=== PATIENT | female | born 1935 | race Caucasian/White ===

== ENCOUNTER 2020-08-08 08:53 | Inpatient (IN) ==
--- OUTSIDE RECORDS SUMMARY | 2020-08-08 08:56 | External Medical Summary | Continuity of Care Document ---
:1935 Author Name Elli Skelton, Provider Address Unavailable Unavailable , Care Team Providers Name Role Phone Zaheer Gregory M.D. 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) Rhabdomyolysis (728.88) (M62.82) Allergies and Adverse Reactions No Known Drug Allergies (Allergy) Medications No Reported Medications Refills: 0 Procedures History of hysterectomy Status: Complete d History of bladder surgery Status: Compl eted History of rotator cuff repair Status: C ompleted History of hernia repair Status: Complet ed Immunizations Immunizations not documented Family History Father Family history of cardiac disorder (V17.49) (Z82.49) Status: Active Social History - Smoking Status Never smoked tobacco Interventions InstructionsEat a low fat and low cholesterol diet.; Done: 17 Jan 2017 Discussion/SummaryThe patient is stable from a cardiovascular standpoint. Fortunately, her recent echocardiogram showed resolution of her mild left ventricular dysfunction. This was likely occurred because of her significant episode of rhabdomyolysis. Furthermore, there has been complete resolution of her previously diagnosed pericardial effusion.Duration of the visit was greater than 25 minutes. More than 50 percent of the time was spent in counseling and education. Plan of Treatment Planned Observations Planned Goals not documented Results No Known Results Results not documented Encounters Appointment; Zaheer Gregory M.D. 17-Jan-2017 13:45 Encounter Diagnosis: Problem not documented
[2020-08-08] MEDS ORDERED: ONDANSETRON INJ 2 MG/ML 2 ML VIAL IV STA (09:02)
[2020-08-08] MEDS ORDERED: SODIUM CHLORIDE 0.9% 1000ML 1,000 ML IV SCH (09:15)
--- NOTE | 2020-08-08 09:42 | Electrocardiogram Report ---
Test Reason : Blood Pressure : / mmHG Vent. Rate : 090 BPM Atrial Rate : 090 BPM P-R Int : 122 ms QRS Dur : 074 ms QT Int : 370 ms P-R-T Axes : 005 -03 259 degrees QTc Int : 452 ms Normal sinus rhythm Cannot rule out Old Inferior infarct Poor R wave progression, consider anterior WI vs. lead placement vs. LVH Abnormal ECG No previous ECGs available Confirmed by Kory Ratliff ([id number]) on 08/08/2020 9:41:42 AM Referred By: Confirmed By:Kory Ratliff
--- NOTE | 2020-08-08 09:49 | XRay Report ---
XR chest 1V portable CLINICAL HISTORY: weakness COMPARISON STUDY: No previous studies for comparison. FINDINGS: The heart is the upper limits of normal in size with left ventricular prominence. There is no failure. There is no lobar consolidation. There is mild basilar atelectasis. There is gaseous dist ention of the stomach and visualized portions of the colon.[ IMPRESSION: 1. Mild basilar atelectasis 2. Gaseous distention of the bowel ACT 112: Negative or not required by law. Electronically signed by: Benny Turner M.D. 08/08/2020 9:48 AM
[2020-08-08 09:55] LABS: Basophils # (auto) 0.01 K/uL (0-0.2); Basophils % (auto) 0.1 %; Eosinophils # (auto) 0.02 K/uL (0-0.5); Eosinophils % (auto) 0.2 %; Hematocrit (blood only) 35.7 % (37-47); Hemoglobin 10.7 g/dL (12.0-16.0); Immature Granulocytes # (auto) 0.03 K/uL (0.00-0.02); Immature Granulocytes % (auto) 0.2 %; Lymphocytes # (auto) 0.78 K/uL (1.2-3.4); Mean Corpuscular Hemoglobin 28.5 pg (25-34); Mean Corpuscular Volume 94.9 fL (80-100); Mean Platelet Volume 9.5 fL (7.4-10.4); Monocytes # (auto) 1.33 K/uL (0.11-0.59); Monocytes % (auto) 10.2 %; Neutrophils # (auto) 10.91 K/uL (1.4-6.5); Neutrophils % (auto) 83.3 %; Platelet Count 489 K/uL (130-400); RDW Coefficient of Variation 15.6 % (11.5-14.5); RDW Standard Deviation 53.7 fL (36.4-46.3); Red Blood Count 3.76 M/uL (4.2-5.4); White Blood Count 13.08 K/uL (4.8-10.8)
[2020-08-08 09:56] LABS: Appearance Urine Cloudy (Clear); Bacteria Urine Automated 2+ (Negative); Bilirubin Urine Negative (Negative); Blood Urine Negative (Negative); Color Urine Dark Yellow; Epithelial Cell Urine Auto 20-30 /lpf (0-5); Glucose Urine UA Negative (Negative); Ketones Urine Trace (Negative); Leukocyte Esterase Urine Negative (Negative); Nitrite Urine Negative (Negative); Protein Urine Trace (Negative); RBC Urine Automated 0-4 /hpf (0-4); Specific Gravity Urine 1.025 (1.000-1.030); Urobilinogen Urine Negative (Negative)
[2020-08-08] MEDS ORDERED: SODIUM CHLORIDE 0.9% 1000ML 1,000 ML IV ONE (09:59)
[2020-08-08 10:07] LABS: iSTAT Creatinine 2.1 mg/dl (0.6-1.3); iSTAT Hemoglobin 11.2 g/dl (12.0-16.0); iSTAT Ionized Calcium 1.05 mmol/l (1.12-1.32); iSTAT Potassium 4.1 mmol/L (3.3-5.0)
[2020-08-08 10:13] LABS: INR 1.3 (0.9-1.1)
[2020-08-08 10:32] LABS: Albumin Globulin Ratio 0.7 (0.9-2); Albumin Level 2.5 gm/dl (3.4-5.0); BUN Creatinine Ratio 21.9 (10-20); Bilirubin,Total 0.4 mg/dl (0.2-1); Calcium 7.7 mg/dl (8.5-10.1); Globulin 3.6 gm/dl (2.5-4.0); Magnesium 2.6 mg/dl (1.8-2.4); Potassium 4.1 mmol/L (3.5-5.1); Thyroid Stimulating Hormone 6.24 uIu/ml (0.300-4.500); Total Protein 6.1 gm/dl (6.4-8.2); Troponin I 0.022 ng/ml (0-0.045)
[2020-08-08 10:35] LABS: Influenza A virus by PCR Negative (Neg); Influenza B virus by PCR Negative (Neg); RSV by PCR Negative (Neg); SARS CoV2 RNA(COVID-19) InHosp NEGATIVE (Negative)
--- NOTE | 2020-08-08 10:42 | Emergency Department Note ---
Impression & Plan Colonic mass, SBO (small bowel obstruction), Hypotension, Acute worsening of stage 3 chronic kidney disease, Ischemia, bowel ED Provider Note Provider: Adan Booth MD DATE OF SERVICE: 08/08/2020 CHIEF COMPLAINT: Short of breath, abdominal pain, low blood pressure HISTORY OF PRESENT ILLNESS: Patient is a 84-year-old female with a past medical history including per medical record CKD, GERD, CVA, diaphragmatic hernia presented via ambulance today from [facility]. Report is this morning the patient's short of breath and appear cooled and possibly somewhat mottled. EMS noted hypotension blood pressures in the 80s for them and the patient seem to be in some respiratory distress. Patient upon arrival here is alert but does appear uncomfortable. She is somewhat cool to the touch and appears quite fatigued. States that she has had approximately 2 days of some abdominal discomfort and has not eaten much for the last 2 days. Patient denies significant chest pain or shortness of breath. She denies any falls. She denies a history of similar plane. Patient's daughter later arrives and states that she was unaware of her complaints for the last 2 days and the facility called her today and states that the patient seems somewhat short of breath. No fevers were reported by EMS. REVIEW OF SYSTEMS: A total of 10 review of systems was obtained and negative except as stated above in the HPI. PAST MEDICAL HISTORY: As noted above MEDICATIONS: Reviewed home medication list from the facility SOCIAL HISTORY: Currently resides at [facility], reportedly non-smoker PHYSICAL EXAM: GENERAL: alert and oriented but fatigued appearing on the stretcher Head: normocephalic and atraumatic EYES: No injection, discharge or icterus. NECK: Trachea midline. LUNGS: Airway patent. No retractions. Breath sounds clear HEART: Regular rate and rhythm. No chest wall tenderness but extremities are with decreased capillary refill and somewhat cool to the touch. ABDOMEN: Firm with diffuse tenderness and guarding. SKIN: Decreased capillary refill. No sacral decub appreciated. Somewhat cool distal extremities. EXTREMITIES: Without swelling, tenderness or deformity of the lower extremities NEUROLOGICAL: No focal deficits. No aphasia. No facial droop or slurred speech. EK bpm normal sinus rhythm no PVC noted. No acute ST segment elevation noted with a QTC of 452. Some artifact limits interpretation of V6. CONTINUOUS CARDIAC MONITORING: was ordered and showed a heart rate of 80s-90s bpm in normal sinus rhythm Patient's laboratory studies and imaging reviewed. Differential includes Infection, dehydration, metabolic abnormality, hypo/hyperglycemia, electrolyte disturbance, anemia, hypoxia, cardiac sources, intracerebral event, toxicologic, neurologic, gastrointestinal as well as other pathologies. IMPRESSION/MEDICAL DECISION MAKING: Patient presents reportedly somewhat tachypneic and hypotensive prior to arrival. Patient presents with a living well. In discussion with the patient with daughter at bedside she states she would not want CPR or intubation. She be okay with medical management as far as antibiotics and medications for blood pressure but would not want a surgery. Patient's oxygenating well but somewhat tachypneic holding her abdomen is maintained on 2 L nasal cannula. Patient given IV fluid bolus given episodes of hypotension here.. Abdomen is somewhat firm and tender and concerning. [id number] BMP shows elevated creatinine. Noncontrast scan of the abdomen pelvis was ordered given this finding. Chest x- ray appears clear with gaseous distention of the abdomen. Patient without focal neurological deficit lower suspicion for acute CVA. Patient is somewhat anemic at 10.7 with a white count of 13. Bicarb quite low at 8 and lactate elevated greater than 11. Troponin detectable not abnormal. Urine without signs of infection. Covid influenza testing was negative. Procalcitonin significantly elevated. 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 Radiology also notes extensive pneumatosis and with a lactate of 11 and severe pain significant concern for ischemic bowel. Concerning findings for metastasis also noted. Discussed with the the patient and her daughter at bedside. Discussed the significance of the finding. Patient again voices that she would not want any acute surgical intervention. She states that she just wants to be comfortable. Discussed with the patient and daughter that with concerns for ischemic colitis if no surgeries are performed the outcome is fatal. They understand this. Given this discussed transition to comfort measures and small amount of morphine given for pain. Patient was for some sips of water. Given the need for acute pain control with ischemic colitis and bowel obstruction discussed further care here at the hospital in a comfort manner. DIAGNOSIS: Cecal mass, small bowel obstruction, ischemic colitis DISPOSITION: Hospitalist will evaluate with the plan to transition to comfort care Past Med/Surg History Medical History (Updated 08/08/20 @ 13:11 by Adan Booth M.D.) Anemia CKD (chronic kidney disease) stage 3, GFR 30-59 ml/min Depression GERD (gastroesophageal reflux disease) History of CVA (cerebrovascular accident) HLD (hyperlipidemia) HTN (hypertension) Surgical History (Updated 08/08/20 @ 11:54 by Kay Isidro PA-C) History of hysterectomy History of shoulder surgery S/P repair of paraesophageal hernia Social History Smoking Status: Never smoker Preferred Language: Montserratian Feels Safe at Home: Yes Allergies Allergies Allergy/AdvReac Type Severity Reaction Status Date / Time No Known Allergies Allergy Verified 08/08/20 09:39 Home Meds Home Medications Medication Instructions Recorded Confirmed acetaminophen [Tylenol] 650 mg PO Q4H PRN MDD 4 GRAMS/24 02/11/20 08/08/20 HOURS amlodipine 5 mg PO QAM 02/11/20 08/08/20 ascorbic acid (vitamin C) [Vitamin 500 mg PO QAM 02/11/20 08/08/20 C] aspirin 325 mg PO QAM 02/11/20 08/08/20 atorvastatin [Lipitor] 40 mg PO HS 02/11/20 08/08/20 mirtazapine [Remeron] 30 mg PO HS 02/11/20 08/08/20 pantoprazole [Protonix] 40 mg PO QAM 02/11/20 08/08/20 bisacodyl [Dulcolax (bisacodyl)] 10 mg MA DAILY PRN 08/08/20 08/08/20 docusate sodium 100 mg PO DAILY 08/08/20 08/08/20 ferrous gluconate 324 mg PO BID 08/08/20 08/08/20 loperamide 2 mg PO QID PRN 08/08/20 08/08/20 magnesium hydroxide [Milk of 30 ml PO DAILY PRN 08/08/20 08/08/20 Magnesia] polyethylene glycol 3350 [Miralax] 17 g PO DAILY PRN 08/08/20 08/08/20 tramadol 50 mg PO Q6H PRN 08/08/20 08/08/20 zinc oxide 1 applic TOPICAL 6XD PRN 08/08/20 08/08/20 Results & Data (ED) Vital Signs Vital Signs - 24 hr 08/08/20 08:55 08/08/20 09:58 08/08/20 10:00 Temperature 36.6 C Temperature Source Rectal Pulse Rate 90 88 87 Pulse Rate from SpO2 Sensor 89 87 Pulse Rhythm Regular Pulse Strength Normal Respiratory Rate 28 H 33 H 28 H Respiratory Effort / Characteristics Spontaneous Accessory Muscle Use Retracting Short of Breath Respiratory Depth Retractive Respiratory Pattern Regular Blood Pressure 107/64 72/47 L 74/48 L Blood Pressure Mean 78 55 56 Blood Pressure Position Sitting Pulse Oximetry 100 100 100 Oxygen Delivery Method Nasal Cannula Oxygen Flow Rate 2 Sepsis Recent Fever Within 48 Hours No Sepsis New/Unexplained Change in Mental Status No Sepsis Action Taken by Nursing No Action Required 08/08/20 10:03 08/08/20 10:05 08/08/20 10:15 Temperature Temperature Source Pulse Rate 87 87 85 Pulse Rate from SpO2 Sensor 86 88 88 Pulse Rhythm Pulse Strength Respiratory Rate 33 H 31 H 31 H Respiratory Effort / Characteristics Respiratory Depth Respiratory Pattern Blood Pressure 78/54 L 80/45 L 82/50 L Blood Pressure Mean 62 56 60 Blood Pressure Position Pulse Oximetry 100 98 99 Oxygen Delivery Method Nasal Cannula Oxygen Flow Rate 2 Sepsis Recent Fever Within 48 Hours Sepsis New/Unexplained Change in Mental Status Sepsis Action Taken by Nursing 08/08/20 10:31 08/08/20 10:33 08/08/20 10:35 Temperature Temperature Source Pulse Rate 81 81 81 Pulse Rate from SpO2 Sensor 81 Pulse Rhythm Pulse Strength Respiratory Rate 15 26 H 26 H Respiratory Effort / Characteristics Respiratory Depth Respiratory Pattern Blood Pressure 96/52 L 96/51 L Blood Pressure Mean 66 66 Blood Pressure Position Pulse Oximetry 100 Oxygen Delivery Method Oxygen Flow Rate Sepsis Recent Fever Within 48 Hours Sepsis New/Unexplained Change in Mental Status Sepsis Action Taken by Nursing 08/08/20 10:40 08/08/20 10:45 08/08/20 10:50 Temperature Temperature Source Pulse Rate 81 81 82 Pulse Rate from SpO2 Sensor 81 81 82 Pulse Rhythm Pulse Strength Respiratory Rate 26 H 27 H 26 H Respiratory Effort / Characteristics Respiratory Depth Respiratory Pattern Blood Pressure 97/56 L 101/60 104/60 Blood Pressure Mean 69 73 74 Blood Pressure Position Pulse Oximetry 100 100 100 Oxygen Delivery Method Oxygen Flow Rate Sepsis Recent Fever Within 48 Hours Sepsis New/Unexplained Change in Mental Status Sepsis Action Taken by Nursing 08/08/20 10:55 08/08/20 11:01 04/05/21 11:06 Temperature Temperature Source Pulse Rate 82 83 83 Pulse Rate from SpO2 Sensor 82 85 83 Pulse Rhythm Pulse Strength Respiratory Rate 26 H 26 H 26 H Respiratory Effort / Characteristics Respiratory Depth Respiratory Pattern Blood Pressure 92/59 L 90/54 L 93/58 L Blood Pressure Mean 70 66 69 Blood Pressure Position Pulse Oximetry 100 100 100 Oxygen Delivery Method Oxygen Flow Rate Sepsis Recent Fever Within 48 Hours Sepsis New/Unexplained Change in Mental Status Sepsis Action Taken by Nursing 08/08/20 11:15 08/08/20 11:20 08/08/20 11:25 Temperature Temperature Source Pulse Rate 82 81 82 Pulse Rate from SpO2 Sensor 79 82 82 Pulse Rhythm Pulse Strength Respiratory Rate Respiratory Effort / Characteristics Respiratory Depth Respiratory Pattern Blood Pressure 82/51 L 89/55 L 86/58 L Blood Pressure Mean 61 66 67 Blood Pressure Position Pulse Oximetry 97 100 100 Oxygen Delivery Method Oxygen Flow Rate Sepsis Recent Fever Within 48 Hours Sepsis New/Unexplained Change in Mental Status Sepsis Action Taken by Nursing 08/08/20 11:30 08/08/20 11:35 08/08/20 11:40 Temperature Temperature Source Pulse Rate 81 81 83 Pulse Rate from SpO2 Sensor 81 83 Pulse Rhythm Pulse Strength Respiratory Rate Respiratory Effort / Characteristics Respiratory Depth Respiratory Pattern Blood Pressure 87/58 L 104/52 L Blood Pressure Mean 67 69 Blood Pressure Position Pulse Oximetry 100 91 100 Oxygen Delivery Method Oxygen Flow Rate Sepsis Recent Fever Within 48 Hours Sepsis New/Unexplained Change in Mental Status Sepsis Action Taken by Nursing 08/08/20 11:41 08/08/20 13:08 Temperature Temperature Source Pulse Rate 83 Pulse Rate from SpO2 Sensor Pulse Rhythm Pulse Strength Respiratory Rate Respiratory Effort / Characteristics Respiratory Depth Respiratory Pattern Blood Pressure 84/54 L Blood Pressure Mean 64 Blood Pressure Position Pulse Oximetry Oxygen Delivery Method Nasal Cannula Oxygen Flow Rate 2 Sepsis Recent Fever Within 48 Hours Sepsis New/Unexplained Change in Mental Status Sepsis Action Taken by Nursing Laboratory Data Result diagrams: 08/08/20 09:36 08/08/20 09:36 Lab Results 08/08/20 08/08/20 08/08/20 Range/Units 09:22 09:22 09:23 WBC (4.8-10.8) K/uL RBC (4.2-5.4) M/uL Hgb (12.0-16.0) g/dL POC Hgb (12.0-16.0) g/dl Hct (37-47) % POC Hct (37-47) % MCV (80-100) fL MCH (25-34) pg MCHC (32-36) g/dL RDW Std Deviation (36.4-46.3) fL RDW Coeff of Charisma (11.5-14.5) % Plt Count (130-400) K/uL MPV (7.4-10.4) fL Immature Gran % (Auto) % Neut % (Auto) % Lymph % (Auto) % [place] % (Auto) % Eos % (Auto) % Baso % (Auto) % Neut # (Auto) (1.4-6.5) K/uL Lymph # (Auto) (1.2-3.4) K/uL [place] # (Auto) (0.11-0.59) K/uL Eos # (Auto) (0-0.5) K/uL Baso # (Auto) (0-0.2) K/uL Immature Gran # (Auto) (0.00-0.02) K/uL PT (9.0-12.0) Seconds INR (0.9-1.1) POC Sodium (135-144) mmol/L Sodium (136-145) mmol/L POC Potassium (3.3-5.0) mmol/L Potassium (3.5-5.1) mmol/L POC Chloride (101-112) mmol/L Chloride (98-107) mmol/L Carbon Dioxide (21-32) mmol/L POC Total CO2 (24-31) mmol/L Anion Gap (3-11) POC Anion Gap (16-25) mmol/L POC BUN (7-18) mg/dl BUN (7-18) mg/dl Creatinine (0.6-1.2) mg/dl POC Creatinine (0.6-1.3) mg/dl Est Cr Clr Drug Dosing ml/min Est GFR ( Amer) Est GFR (Non-Af Amer) BUN/Creatinine Ratio (10-20) Glucose (70-99) mg/dl POC Glucose (other) (70-99) mg/dl Lactate (0.4-2.0) mmol/L Calcium (8.5-10.1) mg/dl POC Ioniz Calcium Randall (1.12-1.32) mmol/l Magnesium (1.8-2.4) mg/dl Total Bilirubin (0.2-1) mg/dl AST (15-37) U/L ALT (12-78) U/L Alkaline Phosphatase (45-117) U/L Troponin I (0-0.045) ng/ml Total Protein (6.4-8.2) gm/dl Albumin (3.4-5.0) gm/dl Globulin (2.5-4.0) gm/dl Albumin/Globulin Ratio (0.9-2) Lipase (73-393) U/L Procalcitonin (0-0.5) ng/ml TSH (0.300-4.500) uIu/ml Free T4 (0.8-1.6) ng/dl Urine Color Dark Yellow Urine Appearance Cloudy A (Clear) Urine pH 5.0 (4.5-7.5) Ur Specific [place] 1.025 (1.000-1.030) Urine Protein Trace H (Negative) Urine Glucose (UA) Negative (Negative) Urine Ketones Trace H (Negative) Urine Blood Negative (Negative) Urine Nitrite Negative (Negative) Urine Bilirubin Negative (Negative) Urine Urobilinogen Negative (Negative) Ur Leukocyte Esterase Negative (Negative) Urine WBC (Auto) 1-5 (0-5) /hpf Urine RBC (Auto) 0-4 (0-4) /hpf U Hyaline Cast (Auto) 5-10 H (0-5) /lpf U Epithel Cells (Auto) 20-30 H (0-5) /lpf Urine Bacteria (Auto) 2+ H (Negative) COVID-19 Eval Order CovFluRsv at [facility] SARS-CoV-2 (PCR) NEGATIVE (Negative) Influenza Type A (PCR) Negative (Neg) Influenza Type B (PCR) Negative (Neg) RSV (RT-PCR) Negative (Neg) 08/08/20 08/08/20 08/08/20 Range/Units 09:36 09:36 09:36 WBC 13.08 H (4.8-10.8) K/uL RBC 3.76 L (4.2-5.4) M/uL Hgb 10.7 L (12.0-16.0) g/dL POC Hgb (12.0-16.0) g/dl Hct 35.7 L (37-47) % POC Hct (37-47) % MCV 94.9 (80-100) fL MCH 28.5 (25-34) pg MCHC 30.0 L (32-36) g/dL RDW Std Deviation 53.7 H (36.4-46.3) fL RDW Coeff of Charisma 15.6 H (11.5-14.5) % Plt Count 489 H (130-400) K/uL MPV 9.5 (7.4-10.4) fL Immature Gran % (Auto) 0.2 % Neut % (Auto) 83.3 % Lymph % (Auto) 6.0 % [place] % (Auto) 10.2 % Eos % (Auto) 0.2 % Baso % (Auto) 0.1 % Neut # (Auto) 10.91 H (1.4-6.5) K/uL Lymph # (Auto) 0.78 L (1.2-3.4) K/uL [place] # (Auto) 1.33 H (0.11-0.59) K/uL Eos # (Auto) 0.02 (0-0.5) K/uL Baso # (Auto) 0.01 (0-0.2) K/uL Immature Gran # (Auto) 0.03 H (0.00-0.02) K/uL PT 13.0 H (9.0-12.0) Seconds INR 1.3 H (0.9-1.1) POC Sodium (135-144) mmol/L Sodium 142 (136-145) mmol/L POC Potassium (3.3-5.0) mmol/L Potassium 4.1 (3.5-5.1) mmol/L POC Chloride (101-112) mmol/L Chloride 112 H (98-107) mmol/L Carbon Dioxide 8 L* (21-32) mmol/L POC Total CO2 (24-31) mmol/L Anion Gap 22.0 H (3-11) POC Anion Gap (16-25) mmol/L POC BUN (7-18) mg/dl BUN 50 H (7-18) mg/dl Creatinine 2.28 H (0.6-1.2) mg/dl POC Creatinine (0.6-1.3) mg/dl Est Cr Clr Drug Dosing 13.0 ml/min Est GFR ( Amer) 22.0 Est GFR (Non-Af Amer) 19.0 BUN/Creatinine Ratio 21.9 H (10-20) Glucose 156 H (70-99) mg/dl POC Glucose (other) (70-99) mg/dl Lactate (0.4-2.0) mmol/L Calcium 7.7 L (8.5-10.1) mg/dl POC Ioniz Calcium Randall (1.12-1.32) mmol/l Magnesium 2.6 H (1.8-2.4) mg/dl Total Bilirubin 0.4 (0.2-1) mg/dl AST 53 H (15-37) U/L ALT 33 (12-78) U/L Alkaline Phosphatase 124 H (45-117) U/L Troponin I 0.022 (0-0.045) ng/ml Total Protein 6.1 L (6.4-8.2) gm/dl Albumin 2.5 L (3.4-5.0) gm/dl Globulin 3.6 (2.5-4.0) gm/dl Albumin/Globulin Ratio 0.7 L (0.9-2) Lipase (73-393) U/L Procalcitonin (0-0.5) ng/ml TSH 6.240 H (0.300-4.500) uIu/ml Free T4 1.24 (0.8-1.6) ng/dl Urine Color Urine Appearance (Clear) Urine pH (4.5-7.5) Ur Specific [place] (1.000-1.030) Urine Protein (Negative) Urine Glucose (UA) (Negative) Urine Ketones (Negative) Urine Blood (Negative) Urine Nitrite (Negative) Urine Bilirubin (Negative) Urine Urobilinogen (Negative) Ur Leukocyte Esterase (Negative) Urine WBC (Auto) (0-5) /hpf Urine RBC (Auto) (0-4) /hpf U Hyaline Cast (Auto) (0-5) /lpf U Epithel Cells (Auto) (0-5) /lpf Urine Bacteria (Auto) (Negative) COVID-19 Eval Order SARS-CoV-2 (PCR) (Negative) Influenza Type A (PCR) (Neg) Influenza Type B (PCR) (Neg) RSV (RT-PCR) (Neg) 04/05/21 04/05/21 04/05/21 Range/Units 09:36 09:36 09:36 WBC (4.8-10.8) K/uL RBC (4.2-5.4) M/uL Hgb (12.0-16.0) g/dL POC Hgb (12.0-16.0) g/dl Hct (37-47) % POC Hct (37-47) % MCV (80-100) fL MCH (25-34) pg MCHC (32-36) g/dL RDW Std Deviation (36.4-46.3) fL RDW Coeff of Charisma (11.5-14.5) % Plt Count (130-400) K/uL MPV (7.4-10.4) fL Immature Gran % (Auto) % Neut % (Auto) % Lymph % (Auto) % [place] % (Auto) % Eos % (Auto) % Baso % (Auto) % Neut # (Auto) (1.4-6.5) K/uL Lymph # (Auto) (1.2-3.4) K/uL [place] # (Auto) (0.11-0.59) K/uL Eos # (Auto) (0-0.5) K/uL Baso # (Auto) (0-0.2) K/uL Immature Gran # (Auto) (0.00-0.02) K/uL PT (9.0-12.0) Seconds INR (0.9-1.1) POC Sodium (135-144) mmol/L Sodium (136-145) mmol/L POC Potassium (3.3-5.0) mmol/L Potassium (3.5-5.1) mmol/L POC Chloride (101-112) mmol/L Chloride (98-107) mmol/L Carbon Dioxide (21-32) mmol/L POC Total CO2 (24-31) mmol/L Anion Gap (3-11) POC Anion Gap (16-25) mmol/L POC BUN (7-18) mg/dl BUN (7-18) mg/dl Creatinine (0.6-1.2) mg/dl POC Creatinine (0.6-1.3) mg/dl Est Cr Clr Drug Dosing ml/min Est GFR ( Amer) Est GFR (Non-Af Amer) BUN/Creatinine Ratio (10-20) Glucose (70-99) mg/dl POC Glucose (other) (70-99) mg/dl Lactate 11.7 H* (0.4-2.0) mmol/L Calcium (8.5-10.1) mg/dl POC Ioniz Calcium Randall (1.12-1.32) mmol/l Magnesium (1.8-2.4) mg/dl Total Bilirubin (0.2-1) mg/dl AST (15-37) U/L ALT (12-78) U/L Alkaline Phosphatase (45-117) U/L Troponin I (0-0.045) ng/ml Total Protein (6.4-8.2) gm/dl Albumin (3.4-5.0) gm/dl Globulin (2.5-4.0) gm/dl Albumin/Globulin Ratio (0.9-2) Lipase 78 (73-393) U/L Procalcitonin 45.43 H (0-0.5) ng/ml TSH (0.300-4.500) uIu/ml Free T4 (0.8-1.6) ng/dl Urine Color Urine Appearance (Clear) Urine pH (4.5-7.5) Ur Specific [place] (1.000-1.030) Urine Protein (Negative) Urine Glucose (UA) (Negative) Urine Ketones (Negative) Urine Blood (Negative) Urine Nitrite (Negative) Urine Bilirubin (Negative) Urine Urobilinogen (Negative) Ur Leukocyte Esterase (Negative) Urine WBC (Auto) (0-5) /hpf Urine RBC (Auto) (0-4) /hpf U Hyaline Cast (Auto) (0-5) /lpf U Epithel Cells (Auto) (0-5) /lpf Urine Bacteria (Auto) (Negative) COVID-19 Eval Order SARS-CoV-2 (PCR) (Negative) Influenza Type A (PCR) (Neg) Influenza Type B (PCR) (Neg) RSV (RT-PCR) (Neg) 08/08/20 Range/Units 09:45 WBC (4.8-10.8) K/uL RBC (4.2-5.4) M/uL Hgb (12.0-16.0) g/dL POC Hgb 11.2 L (12.0-16.0) g/dl Hct (37-47) % POC Hct 33 L (37-47) % MCV (80-100) fL MCH (25-34) pg MCHC (32-36) g/dL RDW Std Deviation (36.4-46.3) fL RDW Coeff of Charisma (11.5-14.5) % Plt Count (130-400) K/uL MPV (7.4-10.4) fL Immature Gran % (Auto) % Neut % (Auto) % Lymph % (Auto) % [place] % (Auto) % Eos % (Auto) % Baso % (Auto) % Neut # (Auto) (1.4-6.5) K/uL Lymph # (Auto) (1.2-3.4) K/uL [place] # (Auto) (0.11-0.59) K/uL Eos # (Auto) (0-0.5) K/uL Baso # (Auto) (0-0.2) K/uL Immature Gran # (Auto) (0.00-0.02) K/uL PT (9.0-12.0) Seconds INR (0.9-1.1) POC Sodium 141 (135-144) mmol/L Sodium (136-145) mmol/L POC Potassium 4.1 (3.3-5.0) mmol/L Potassium (3.5-5.1) mmol/L POC Chloride 115 H (101-112) mmol/L Chloride (98-107) mmol/L Carbon Dioxide (21-32) mmol/L POC Total CO2 9 L* (24-31) mmol/L Anion Gap (3-11) POC Anion Gap 23.0 (16-25) mmol/L POC BUN 42 H (7-18) mg/dl BUN (7-18) mg/dl Creatinine (0.6-1.2) mg/dl POC Creatinine 2.1 H (0.6-1.3) mg/dl Est Cr Clr Drug Dosing ml/min Est GFR ( Amer) Est GFR (Non-Af Amer) BUN/Creatinine Ratio (10-20) Glucose (70-99) mg/dl POC Glucose (other) 153 H (70-99) mg/dl Lactate (0.4-2.0) mmol/L Calcium (8.5-10.1) mg/dl POC Ioniz Calcium [place] 1.05 L (1.12-1.32) mmol/l Magnesium (1.8-2.4) mg/dl Total Bilirubin (0.2-1) mg/dl AST (15-37) U/L ALT (12-78) U/L Alkaline Phosphatase (45-117) U/L Troponin I (0-0.045) ng/ml Total Protein (6.4-8.2) gm/dl Albumin (3.4-5.0) gm/dl Globulin (2.5-4.0) gm/dl Albumin/Globulin Ratio (0.9-2) Lipase (73-393) U/L Procalcitonin (0-0.5) ng/ml TSH (0.300-4.500) uIu/ml Free T4 (0.8-1.6) ng/dl Urine Color Urine Appearance (Clear) Urine pH (4.5-7.5) Ur Specific [place] (1.000-1.030) Urine Protein (Negative) Urine Glucose (UA) (Negative) Urine Ketones (Negative) Urine Blood (Negative) Urine Nitrite (Negative) Urine Bilirubin (Negative) Urine Urobilinogen (Negative) Ur Leukocyte Esterase (Negative) Urine WBC (Auto) (0-5) /hpf Urine RBC (Auto) (0-4) /hpf U Hyaline Cast (Auto) (0-5) /lpf U Epithel Cells (Auto) (0-5) /lpf Urine Bacteria (Auto) (Negative) COVID-19 Eval Order SARS-CoV-2 (PCR) (Negative) Influenza Type A (PCR) (Neg) Influenza Type B (PCR) (Neg) RSV (RT-PCR) (Neg) Administered Medications Discontinued Medications Sodium Chloride (Nss 1000ml) 1,000 mls @ 999 mls/hr IV .Q1H1M HUMPHREY Stop: 08/08/20 10:15 Last Infusion: 08/08/20 10:32 Dose: 0 mls/hr Documented by: [id number] Admin: 08/08/20 09:21 Dose: 999 mls/hr Documented by: [id number] Sodium Chloride (Nss 1000ml) 1,000 mls @ 999 mls/hr IV .Q1H1M ONE Stop: 08/08/20 10:59 Last Infusion: 08/08/20 11:09 Dose: 0 mls/hr Documented by: [id number] Admin: 08/08/20 10:05 Dose: 999 mls/hr Documented by: [id number] Morphine Sulfate (Morphine Sulfate 2 Mg/Ml Carp) 2 mg IV NOW STA Stop: 08/08/20 11:38 Last Admin: 08/08/20 11:58 Dose: 2 mg Documented by: [id number] Ondansetron HCl (Ondansetron Inj 2 Mg/Ml 2 Ml Vial) 4 mg IV NOW STA Stop: 08/08/20 09:03 Last Admin: 08/08/20 09:21 Dose: 4 mg Documented by: [id number] Imaging Data Radiologist's Impression: Chest X-Ray 08/08/20 09:02 XR chest 1V portable CLINICAL HISTORY: weakness COMPARISON STUDY: No previous studies for comparison. FINDINGS: The heart is the upper limits of normal in size with left ventricular prominence. There is no failure. There is no lobar consolidation. There is mild basilar atelectasis. There is gaseous distention of the stomach and visualized portions of the colon.[ IMPRESSION: 1. Mild basilar atelectasis 2. Gaseous distention of the bowel ACT 112: Negative or not required by law. Electronically signed by: Benny Turner M.D. 08/08/2020 9:48 AM Abdomen/Pelvis CT 08/08/20 10:[address] WITHOUT CONTRAST CT DOSE: 273.10 mGy.cm HISTORY: Acute generalized abdominal pain with nausea pain, nausea, swelling, melyssa TECHNIQUE: Multiaxial CT images of the abdomen and pelvis were performed without contrast. A dose lowering technique was utilized adhering to the principles of ALARA. COMPARISON STUDY: CT pelvis 02/11/2020 FINDINGS: Cardiomegaly with coronary artery calcifications. Bibasilar groundglass densities suggest atelectasis. The unenhanced spleen, mildly atrophic pancreas and adrenal glands are unremarkable. Equivocal sludge versus stones within the gallbladder lumen. 3.4 x 3.2 cm hypodense lesion of the right hepatic lobe, image 19 series 2. Unremarkable kidneys with 11 mm probable cyst of the superior pole right kidney. No hydronephrosis. Unremarkable urinary bladder. Hysterectomy. No adnexal mass lesion. Extensive calcified plaque of the abdominal aorta. Small hiatal hernia. Fluid distended distal esophagus. Moderate to marked gaseous distention of the stomach. Numerous dilated air and fluid-filled loops of small bowel measure up to 4.0 cm transversely. Colonic diverticulosis. Air a nd fluid is noted throughout the large bowel. There is soft tissue thickening masslike thickening of the cecum, distal ileum and ileocecal valve with resultant narrowing of the terminal ileum. Trace adjacent infiltration. There are a few prominent lymph nodes of the right lower quadrant mesentery measuring up to 6 mm. There is diffuse pneumatosis of the colon extending from the cecum through the mid descending segment. Circumferential wall thickening of the anus with perianal soft tissue nodules measuring up to 1.7 x 1.3 cm. Trace free pelvic fluid. Healed fracture of the left inferior pubic ramus with adjacent heterotopic ossifications. Bony defect involves the left ischial tuberosity on image 410 measuring 1.9 cm transversely in the area of previously noted fracture. There is an equivocal lucent lesion of the posterior right 12th rib on image 157, likely artifactual. Lumbar levoscoliosis. IMPRESSION: 1. Masslike thickening of the cecum, terminal ileum and ileocecal valve is suggestive of colonic neoplasm. This narrows the ileocecal valve resulting in partial small bowel obstruction. 2. Pneumatosis coli extending from the cecum through the descending segment is likely secondary to the aforementioned colonic lesion. Ischemic bowel considered less likely. Correlate with laboratory analysis. 3. Masslike thickening of the anus with adjacent perianal nodules. This finding should be correlated with clinical exam findings to exclude neoplasm. 4. 3.4 cm mass of the right hepatic lobe is suspicious for hepatic metastasis. 5. Lucent bony defect of the left ischial tuberosity within the area of previ ously noted fracture. This may reflect osteolysis with lytic metastasis also in the differential. 6. Additional findings as above. ACT 112: Negative or not required by law. The above report was generated using voice recognition software. It may contain grammatical, syntax or spelling errors. Electronically signed by: Leonel Choudhary M.D. 08/08/2020 11:15 AM Discharge Plan Visit Data Chief Complaint: Respiratory Distress ED Provider: Adan Booth Discharge Problem: Colonic mass, SBO (small bowel obstruction), Hypotension, Acute worsening of stage 3 chronic kidney disease, Ischemia, bowel Patient Disposition: Being Evaluated by Hospitalist Discharge Instructions Interventions: ED Discharge Assessment Last Done: 08/08/20 13:08 Forms Stand Alone Forms: [facility] Prescriptions Prescriptions: No Action atorvastatin [Lipitor] 40 mg Tablet 40 mg PO HS RF: 0 acetaminophen [Tylenol] 325 mg Tablet 650 mg PO Q4H MDD 4 GRAMS/24 HOURS PRN (Reason: Fever Or Pain) RF: 0 amlodipine 5 mg Tablet 5 mg PO QAM RF: 0 ascorbic acid (vitamin C) [Vitamin C] 500 mg Tablet 500 mg PO QAM RF: 0 aspirin 325 mg Tablet,Delayed Release (Dr/Ec) 325 mg PO QAM RF: 0 pantoprazole [Protonix] 40 mg Tablet,Delayed Release (Dr/Ec) 40 mg PO QAM RF: 0 mirtazapine [Remeron] 30 mg Tablet 30 mg PO HS RF: 0 loperamide 2 mg Tablet 2 mg PO QID PRN (Reason: Diarrhea) RF: 0 tramadol 50 mg Tablet 50 mg PO Q6H PRN (Reason: Pain) RF: 0 magnesium hydroxide [Milk of Magnesia] 400 mg/5 mL Suspension 30 ml PO DAILY PRN (Reason: Constipation) RF: 0 bisacodyl [Dulcolax (bisacodyl)] 10 mg Suppository 10 mg MA DAILY PRN (Reason: Constipation) RF: 0 docusate sodium 100 mg Capsule 100 mg PO DAILY RF: 0 polyethylene glycol 3350 [Miralax] 17 gram/dose Powder 17 g PO DAILY PRN (Reason: Constipation) RF: 0 ferrous gluconate 324 mg (38 mg iron) Tablet 324 mg PO BID RF: 0 zinc oxide 40 % Ointment 1 applic TOPICAL 6XD PRN (Reason: RASH) RF: 0 Referrals Referrals: Delfino Rawls [place] [Primary Care Provider] - Discharge Problem: Hypotension Qualifiers: Hypotension type: unspecified hypotension type Qualified Code(s): I95.9 - Hypotension, unspecified
[2020-08-08 10:47] LABS: T4 Free Thyroxine 1.24 ng/dl (0.8-1.6)
--- NOTE | 2020-08-08 11:16 | CT Scan Report ---
ABDOMEN AND PELVIS CT WITHOUT CONTRAST CT DOSE: 273.10 mGy.cm HISTORY: Acute generalized abdominal pain with nausea pain, nausea, swelling, melyssa TECHNIQUE: Multiaxial CT images of the abdomen and pelvis were performed without contrast. A dose lo wering technique was utilized adhering to the principles of ALARA. COMPARISON STUDY: CT pelvis 02/11/2020 FINDINGS: Cardiomegaly with coronary artery calcifications. Bibasilar groundglass densities suggest atelectasis . The unenhanced spleen, mildly atrophic pancreas and adrenal glands are unremarkable. Equivocal slud ge versus stones within the gallbladder lumen. 3.4 x 3.2 cm hypodense lesion of the right hepatic lob e, image 19 series 2. Unremarkable kidneys with 11 mm probable cyst of the superior pole right kidney . No hydronephrosis. Unremarkable urinary bladder. Hysterectomy. No adnexal mass lesion. Extensive ca lcified plaque of the abdominal aorta. Small hiatal hernia. Fluid distended distal esophagus. Moderate to marked gaseous distention of the s tomach. Numerous dilated air and fluid-filled loops of small bowel measure up to 4.0 cm transversely. Colonic diverticulosis. Air and fluid is noted throughout the large bowel. There is soft tissue thic kening masslike thickening of the cecum, distal ileum and ileocecal valve with resultant narrowing of the terminal ileum. Trace adjacent infiltration. There are a few prominent lymph nodes of the right lower quadrant mesentery measuring up to 6 mm. There is diffuse pneumatosis of the colon extending fr om the cecum through the mid descending segment. Circumferential wall thickening of the anus with per ianal soft tissue nodules measuring up to 1.7 x 1.3 cm. Trace free pelvic fluid. Healed fracture of the left inferior pubic ramus with adjacent heterotopic ossifications. Bony defect involves the left ischial tuberosity on image 410 measuring 1.9 cm transversely in the area of previ ously noted fracture. There is an equivocal lucent lesion of the posterior right 12th rib on image 15 7, likely artifactual. Lumbar levoscoliosis. IMPRESSION: 1. Masslike thickening of the cecum, terminal ileum and ileocecal valve is suggestive of colonic neop lasm. This narrows the ileocecal valve resulting in partial small bowel obstruction. 2. Pneumatosis coli extending from the cecum through the descending segment is likely secondary to th e aforementioned colonic lesion. Ischemic bowel considered less likely. Correlate with laboratory tom lysis. 3. Masslike thickening of the anus with adjacent perianal nodules. This finding should be correlated with clinical exam findings to exclude neoplasm. 4. 3.4 cm mass of the right hepatic lobe is suspicious for hepatic metastasis. 5. Lucent bony defect of the left ischial tuberosity within the area of previously noted fracture. Th is may reflect osteolysis with lytic metastasis also in the differential. 6. Additional findings as above. ACT 112: Negative or not required by law. The above report was generated using voice recognition software. It may contain grammatical, syntax o r spelling errors. Electronically signed by: Leonel Choudhary M.D. 08/08/2020 11:15 AM
[2020-08-08] MEDS ORDERED: MoRPHine SULFATE 2 MG/ML CARP IV STA (11:37)
--- NOTE | 2020-08-08 12:03 | History & Physical Report ---
Date of Service August 08, 2020 Assessment & Plan (1) SBO (small bowel obstruction): (2) Colonic mass: (3) Sepsis: (4) Lactic acidosis: (5) Hypotension: (6) Acute worsening of stage 3 chronic kidney disease: (7) Comfort measures only status: This is a 84-year-old female with significant past medical history of CVA, HTN, HLD, CKD stage III, depression, GERD, history of left pubic ramus fracture, falls who presents to ED from [facility] secondary to abdominal pain x2 days. CT abdomen pelvis revealed masslike thickening of the cecum, terminal ileum and ileocecal valve suggestive of a colonic neoplasm causing a's partial small bowel obstruction. Also extensive pneumatosis coli found from cecum through descending segment likely secondary to ischemic bowel. Further masslike lesions noted at anus with adjacent perianal nodules, 3.4 cm mass of right hepatic lobe suspicious for hepatic metastases and concern for possible lytic metastases to left ischial tuberosity. Pt with apparent extensive colonic mass resulting in partial bowel obstruction and likely ischemic colitis, sepsis, acute renal failure and acidemia. Extensive conversation held with daughter, ONI, at bedside in regards to patient's overall prognosis and condition. Given patient's age recommend conservative and comfort measures at this time. Patient wishes to forego any surgical options at this time. Daughter was made aware of likely underlying aggressive and extensive malignancy and overall prognosis of patient is very poor. She has significant lactic acidosis and persistent hypotension. Overall condition remains terminal. Admit to medical under comfort measures only Palliative care consulted IV morphine for pain control/air hunger N.p.o. except chips, mouth swabs As needed antiemetics Atropine drops for secretions Dispo: med/surg, transition to hospice/palliative care, condition remains terminal and prognosis poor, likely hours to days DNR/DNI Pt was seen and examined in collaboration with Dr. Cronin, please see addendum History of Present Illness Chief Complaint: Abdominal pain x2 days. Primary Care Provider: Sinai Saleh [facility] This is a 84-year-old female with significant past medical history of CVA, HTN, HLD, CKD stage III, depression, GERD, history of left pubic ramus fracture, falls who presents to ED from [facility] secondary to abdominal pain x2 days. Daughter and POA is at bedside. According to patient she has been having abdominal pain x2 days. Daughter also elicits intermittent diarrhea for the past month and a half. Family has had minimal contact due to patient being in nursing facility but was able to see her for the past week. 1 week ago she was in her normal state of health. She has had poor p.o. intake for the past 2 days. Family denies any weight loss. Further denies fever, chills, sweats, lightheadedness, dizziness, chest pain, emesis, melena or hematochezia. Nursing staff noticed patient to be tachypneic and felt they she was having trouble breathing so sent her to ED. In ED patient was hypotensive. CT abdomen pelvis revealed masslike thickening of the cecum, terminal ileum and ileocecal valve suggestive of a colonic neoplasm causing a's partial small bowel obstruction. Also extensive pneumatosis coli found from cecum through descending segment likely secondary to ischemic bowel. Further masslike lesions noted at anus with adjacent perianal nodules, 3.4 cm mass of right hepatic lobe suspicious for hepatic metastases and concern for possible lytic metastases to left ischial tuberosity. Patient had significant lactic acidosis 11.7, bicarb 8, BUN 50, creatinine 2.28, leukocytosis 13.08k, hemoglobin hematocrit 10.7 and 35.7 and procalcitonin of 45.43. ED provider held discussion at bedside with POA and patient who declined any surgical procedures and wishes for comfort measures. We have been consulted for admission and initiation of palliative care. Allergies Allergy/AdvReac Type Severity Reaction Status Date / Time No Known Allergies Allergy Verified 08/08/20 09:39 Home Medications Medication Instructions Recorded Confirmed Type acetaminophen [Tylenol] 650 mg PO Q4H PRN MDD 4 GRAMS/24 02/11/20 08/08/20 Hi story HOURS amlodipine 5 mg PO QAM 02/11/20 08/08/20 History ascorbic acid (vitamin C) [Vitamin 500 mg PO QAM 02/11/20 08/08/20 History C] aspirin 325 mg PO QAM 02/11/20 08/08/20 History atorvastatin [Lipitor] 40 mg PO HS 02/11/20 08/08/20 History mirtazapine [Remeron] 30 mg PO HS 02/11/20 08/08/20 History pantoprazole [Protonix] 40 mg PO QAM 02/11/20 08/08/20 History bisacodyl [Dulcolax (bisacodyl)] 10 mg VT DAILY PRN 08/08/20 08/08/20 History docusate sodium 100 mg PO DAILY 08/08/20 08/08/20 History ferrous gluconate 324 mg PO BID 08/08/20 08/08/20 History loperamide 2 mg PO QID PRN 08/08/20 08/08/20 History magnesium hydroxide [Milk of 30 ml PO DAILY PRN 08/08/20 08/08/20 History Magnesia] polyethylene glycol 3350 [Miralax] 17 g PO DAILY PRN 08/08/20 08/08/20 History tramadol 50 mg PO Q6H PRN 08/08/20 08/08/20 History zinc oxide 1 applic TOPICAL 6XD PRN 08/08/20 08/08/20 History Past Med/Surg History Medical History (Updated 08/08/20 @ 13:56 by RAPHAEL Garcia) Anemia CKD (chronic kidney disease) stage 3, GFR 30-59 ml/min Depression GERD (gastroesophageal reflux disease) History of CVA (cerebrovascular accident) HLD (hyperlipidemia) HTN (hypertension) Palliative care encounter Shortness of breath Surgical History History of hysterectomy History of shoulder surgery S/P repair of paraesophageal hernia Family History Denies family history of Colorectal cancer Social History Smoking Status: Never smoker Hx Alcohol Use: No Hx Substance Use: No Preferred Language: Mohawk marital status: / Current Living Situation: Half-Way Feels Safe at Home: Yes Review of Systems Review of Systems: All systems reviewed & are unremarkable except as noted in HPI & below Physical Exam Physical Exam: Constitutional: Elderly, female, tachypneic, pallor, chronically ill, vitals as above, sitting up in bed, drowsy and difficult to answer questions secondary to effects of morphine Head: Normocephalic, Atraumatic Eyes: PERRL, conjunctivae normal, anicteric sclerae ENMT: external ear and nose normal, oropharynx normal dry mucous membranes Neck: trachea midline, no thyromegaly normal visual inspection Respiratory: Tachypneic, lungs clear to auscultation, no wheeze, rales, rhonchi. Increased insp/exp effort, + accessory muscle use Cardiovascular: RRR, no murmur, no edema Vessels: no JVD or carotid bruit Chest: normal inspection of chest Abdomen: Distended abdomen, firm, tender, high-pitched bowel sounds, no hepatosplenomegaly appreciated Musculoskeletal: no cyanosis or clubbing, cool lower extremities, AROM x 4 Skin: no rashes, warm and dry normal turgor Neurologic: PERRL, no face palsy, no dysarthria CN's II-XI intact bilaterally and moves all extremities Psychiatric: alert and conversive, critically ill Lymphatic: no cervical or axillary lymphadenopathy : deferred Results & Data Results & Data ([facility]) Vital Signs (Past 12 Hours) Vital Signs Temp Pulse Resp BP Pulse Ox 08/08/20 11:41 83 84/54 L 08/08/20 11:40 83 100 08/08/20 11:35 81 104/52 L 91 08/08/20 11:30 81 87/58 L 100 08/08/20 11:25 82 86/58 L 100 08/08/20 11:20 81 89/55 L 100 08/08/20 11:15 82 82/51 L 97 08/08/20 11:06 83 26 H 93/58 L 100 08/08/20 11:01 83 26 H 90/54 L 100 08/08/20 10:55 82 26 H 92/59 L 100 08/08/20 10:50 82 26 H 104/60 100 08/08/20 10:45 81 27 H 101/60 100 08/08/20 10:40 81 26 H 97/56 L 100 08/08/20 10:35 81 26 H 96/51 L 100 08/08/20 10:33 81 26 H 08/08/20 10:31 81 15 96/52 L 08/08/20 10:15 85 31 H 82/50 L 99 08/08/20 10:05 87 31 H 80/45 L 98 08/08/20 10:03 87 33 H 78/54 L 100 08/08/20 10:00 87 28 H 74/48 L 100 08/08/20 09:58 88 33 H 72/47 L 100 08/08/20 08:55 36.6 C 90 28 H 107/64 100 Diagnostic Findings Chest X-Ray 08/08/20 09:02 XR chest 1V portable CLINICAL HISTORY: weakness COMPARISON STUDY: No previous studies for comparison. FINDINGS: The heart is the upper limits of normal in size with left ventricular prominence. There is no failure. There is no lobar consolidation. There is mild basilar atelectasis. There is gaseous distention of the stomach and visualized portions of the colon.[ IMPRESSION: 1. Mild basilar atelectasis 2. Gaseous distention of the bowel ACT 112: Negative or not required by law. Electronically signed by: Benny Turner M.D. 08/08/2020 9:48 AM Abdomen/Pelvis CT 08/08/20 10:[address] WITHOUT CONTRAST CT DOSE: 273.10 mGy.cm HISTORY: Acute generalized abdominal pain with nausea pain, nausea, swelling, melyssa TECHNIQUE: Multiaxial CT images of the abdomen and pelvis were performed without contrast. A dose lowering technique was utilized adhering to the principles of ALARA. COMPARISON STUDY: CT pelvis 02/11/2020 FINDINGS: Cardiomegaly with coronary artery calcifications. Bibasilar groundglass densities suggest atelectasis. The unenhanced spleen, mildly atrophic pancreas and adrenal glands are unremarkable. Equivocal sludge versus stones within the gallbladder lumen. 3.4 x 3.2 cm hypodense lesion of the right hepatic lobe, image 19 series 2. Unremarkable kidneys with 11 mm probable cyst of the superior pole right kidney. No hydronephrosis. Unremarkable urinary bladder. Hysterectomy. No adnexal mass lesion. Extensive calcified plaque of the abdominal aorta. Small hiatal hernia. Fluid distended distal esophagus. Moderate to marked gaseous distention of the stomach. Numerous dilated air and fluid-filled loops of small bowel measure up to 4.0 cm transversely. Colonic diverticulosis. Air and fluid is noted throughout the large bowel. There is soft tissue thickening masslike thickening of the cecum, distal ileum and ileocecal valve with resultant narrowing of the terminal ileum. Trace adjacent infiltration. There are a few prominent lymph nodes of the right lower quadrant mesentery measuring up to 6 mm. There is diffuse pneumatosis of the colon extending from the cecum through the mid descending segment. Circumferential wall thickening of the anus with perianal soft tissue nodules measuring up to 1.7 x 1.3 cm. Trace free pelvic fluid. Healed fracture of the left inferior pubic ramus with adjacent heterotopic ossifications. Bony defect involves the left ischial tuberosity on image 410 measuring 1.9 cm transversely in the area of previously noted fracture. There is an equivocal lucent lesion of the posterior right 12th rib on image 157, likely artifactual. Lumbar levoscoliosis. IMPRESSION: 1. Masslike thickening of the cecum, terminal ileum and ileocecal valve is suggestive of colonic neoplasm. This narrows the ileocecal valve resulting in partial small bowel obstruction. 2. Pneumatosis coli extending from the cecum through the descending segment is likely secondary to the aforementioned colonic lesion. Ischemic bowel considered less likely. Correlate with laboratory analysis. 3. Masslike thickening of the anus with adjacent perianal nodules. This finding should be correlated with clinical exam findings to exclude neoplasm. 4. 3.4 cm mass of the right hepatic lobe is suspicious for hepatic metastasis. 5. Lucent bony defect of the left ischial tuberosity within the area of previously noted fracture. This may reflect osteolysis with lytic metastasis also in the differential. 6. Additional findings as above. ACT 112: Negative or not required by law. The above report was generated using voice recognition software. It may contain grammatical, syntax or spelling errors. Electronically signed by: Leonel Choudhary M.D. 08/08/2020 11:15 AM Medications Administered Discontinued Medications Sodium Chloride (Nss 1000ml) 1,000 mls @ 999 mls/hr IV .Q1H1M HUMPHREY Stop: 08/08/20 10:15 Last Infusion: 08/08/20 10:32 Dose: 0 mls/hr Documented by: [id number] Admin: 08/08/20 09:21 Dose: 999 mls/hr Documented by: [id number] Sodium Chloride (Nss 1000ml) 1,000 mls @ 999 mls/hr IV .Q1H1M ONE Stop: 08/08/20 10:59 Last Infusion: 08/08/20 11:09 Dose: 0 mls/hr Documented by: [id number] Admin: 08/08/20 10:05 Dose: 999 mls/hr Documented by: [id number] Morphine Sulfate (Morphine Sulfate 2 Mg/Ml Carp) 2 mg IV NOW STA Stop: 08/08/20 11:38 Last Admin: 04/05/21 11:58 Dose: 2 mg Documented by: [id number] Ondansetron HCl (Ondansetron Inj 2 Mg/Ml 2 Ml Vial) 4 mg IV NOW STA Stop: 08/08/20 09:03 Last Admin: 08/08/20 09:21 Dose: 4 mg Documented by: [id number] ECG Rate (beats per minute): 90 Rhythm: normal sinus COVID-19 Results Results COVID-19 Adm Lab Results: RBC 3.76 M/uL (4.2-5.4) L 08/08/20 WBC 13.08 K/uL (4.8-10.8) H 08/08/20 Hgb 10.7 g/dL (12.0-16.0) L 08/08/20 Hct 35.7 % (37-47) L 08/08/20 Plt Count 489 K/uL (130-400) H 08/08/20 Neutrophils (%) (Auto) 83.3 % 08/08/20 Lymphocytes (%) (Auto) 6.0 % 08/08/20 Monocytes # (Auto) 1.33 K/uL (0.11-0.59) H 08/08/20 Eosinophils # (Auto) 0.02 K/uL (0-0.5) 08/08/20 Immature Granulocyte % (Auto) 0.2 % 08/08/20 Neutrophils # (Auto) 10.91 K/uL (1.4-6.5) H 08/08/20 Lymphocytes # (Auto) 0.78 K/uL (1.2-3.4) L 08/08/20 Monocytes # (Auto) 1.33 K/uL (0.11-0.59) H 08/08/20 Eosinophils # (Auto) 0.02 K/uL (0-0.5) 08/08/20 Basophils # (Auto) 0.01 K/uL (0-0.2) 08/08/20 Immature Granulocyte # (Auto) 0.03 K/uL (0.00-0.02) H 08/08/20 Na 142 mmol/L (136-145) 08/08/20 K 4.1 mmol/L (3.5-5.1) 08/08/20 Cl 112 mmol/L (98-107) H 08/08/20 CO2 8 mmol/L (21-32) L* 08/08/20 Anion Gap 22.0 (3-11) H 08/08/20 BUN 50 mg/dl (7-18) H 08/08/20 Creatinine 2.28 mg/dl (0.6-1.2) H 08/08/20 BUN/Creatinine Ratio 21.9 (10-20) H 08/08/20 Glucose Level 156 mg/dl (70-99) H 08/08/20 Ca 7.7 mg/dl (8.5-10.1) L 08/08/20 Total Bilirubin 0.4 mg/dl (0.2-1) 08/08/20 AST/SGOT 53 U/L (15-37) H 08/08/20 ALT/SGPT 33 U/L (12-78) 08/08/20 Alkaline Phosphatase 124 U/L (45-117) H 08/08/20 Total Protein 6.1 gm/dl (6.4-8.2) L 08/08/20 Albumin 2.5 gm/dl (3.4-5.0) L 08/08/20 Globulin 3.6 gm/dl (2.5-4.0) 08/08/20 Albumin/Globulin Ratio 0.7 (0.9-2) L 08/08/20 Troponin I 0.022 ng/ml (0-0.045) 08/08/20 Procalcitonin 45.43 ng/ml (0-0.5) H 08/08/20 INR 1.3 (0.9-1.1) H 08/08/20 COVID-19 PCR NEGATIVE (Negative) 08/08/20 Influenza Virus Type A (PCR) Negative (Neg) 08/08/20 Influenza Virus Type B (PCR) Negative (Neg) 08/08/20 Chest X-Ray 08/08/20 Code Status & VTE Plan Code Status DNR/DNI VTE Prophylaxis Plan VTE Prophylaxis will be ordered: Yes Supervising Physician Co-Signing Physician Notes Attending physician: Citlaly Cronin MD 84 yo F admitted today with hypotension , severe metabolic acidosis Hco3 8 /Lactic acid level > 11 CT abdomen pelvis : large caecal mass with obstruction at Ileocecal valve , dilated loops of small bowel suggestive of obstruction metastatic mass on rt lobe of liver , metastatic 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 with bone mets at left ischial tuberosity pt had not prior hx of colon ca very poor prognosis /pt is DNR/DNI, not a surgical candidate , denied for any aggressive procedure or treatment life expectancy few hrs to day after D/w Daughter ( POA ) present at bedside ; goal of care changed to comfort /hospice care Pt was given IV morphine in ER palliative care consulted, was ordered for IV morphine gtt pt ceased breathing @ 3: 20 , daughter was present at bedside Bedside exam : pupils bilateral dilated ,fixed , non reactive lung auscultation :no visible chest wall movement or breathing, no audible breath sound no heart sound pt pronounced , time of 3:20pm Cause of : -cecal mass ( possible metastatic colon ca ) with bowel obstruction leading bowel ischemia -bowel ischemia severe metabolic acidosis with elevated lactate level > 11 -severe sepsis with profound hypotension due to above -pt while on comfort care /hospice Citlaly Cronin MD
[2020-08-08] MEDS ORDERED: STAT IV Infusion **Titration per Protocol STA (13:41)
--- NOTE | 2020-08-08 13:41 | Palliative Care Consultation ---
Date of Consultation August 08, 2020 Assessment & Plan (1) Palliative care encounter: This is an unfortunate 84 year old who presented to the [facility] from [facility] with abdominal pain and hypotension x 2 days. She has an additional PMH that includes CVA, HTN, HLD, CKD III, depression, GERD, and left pubic ramus fracture. A CT scan was performed in the ED revealing a masslike thickening of the cecum, terminal ileum and ileocecal value which resembled colonic neoplasm and causing a small bowel obstruction. Additional pneumoatosis coli and ischemic bowel was noted, with additional liver metastasis. Palliative Care was consulted to discuss goals of care and provide symptom management. Please see A/P for further details. I met with the patient in the emergency department. She was sitting in her bed, using accessory muscles to breathe, and not answering any questions. She did reach out to my hold my hand. I talked with her daughter who stated that they had a wonderful outside visit with her over the last week at [facility] that also included her brother who lives in [facility] and her grandchildren. She expressed that this has presented rather quickly, but they are grateful for the time they have had and would not want her to suffer. She has received Morphine, but does seem visibly short of breath, and is having audible secretions. We discussed continued PRN management vs morphine infusion to manage her more comfortably, especially with the nature of her bowel obstruction that could cause worsening symptoms rapidly. Her daughter was clear that they would not want to wait to start a Morphine infusion to wait for her brother to arrive who is driving from [facility]. Orders were placed and palliative will continue to follow and support family through this end of life transition. Confirmed pt is a DNR/DNI. I anticipate that life expectancy is likely hours to a day or so which the daughter does understand. (2) Ischemia, bowel: CT scan was performed in the ED revealing a masslike thickening of the cecum, terminal ileum and ileocecal value which resembled colonic neoplasm and causing a small bowel obstruction. Additional pneumoatosis coli and ischemic bowel was noted, with additional liver metastasis. No NGTfor decompression/palliation for now per family. (3) Shortness of breath: Using accessory muscles for breathing. Will begin Morphine infusion 1mg/hour. Atropine gtts and Ativan ordered as well. (4) Hypotension: Blood pressure 64/40 when I was in the room. Now on comfort measures. Hypotension type: unspecified hypotension type Qualified Code(s): I95.9 - Hypotension, unspecified History of Present Illness Reason for Consultation: Goals of care Requesting Physician: Dr. Cronin Attending Physician: Dr. Cronin History of Present Illness This is an unfortunate 84 year old who presented to the [facility] from [facility] with abdominal pain and hypotension x 2 days. She has an additional PMH that includes CVA, HTN, HLD, CKD III, depression, GERD, and left pubic ramus fracture. A CT scan was performed in the ED revealing a masslike thickening of the cecum, terminal ileum and ileocecal value which resembled colonic neoplasm and causing a small bowel obstruction. Additional pneumoatosis coli and ischemic bowel was noted, with additional liver metastasis. Palliative Care was consulted to discuss goals of care and provide symptom management. Please see A/P for further details. Thanks for involving palliative care with this unfortunate individual. Allergies Allergy/AdvReac Type Severity Reaction Status Date / Time No Known Allergies Allergy Verified 08/08/20 09:39 Home Medications Medication Instructions Recorded Confirmed Type acetaminophen [Tylenol] 650 mg PO Q4H PRN MDD 4 GRAMS/24 02/11/20 08/08/20 History HOURS amlodipine 5 mg PO QAM 02/11/20 08/08/20 History ascorbic acid (vitamin C) [Vitamin 500 mg PO QAM 02/11/20 08/08/20 History C] aspirin 325 mg PO QAM 02/11/20 08/08/20 History atorvastatin [Lipitor] 40 mg PO HS 02/11/20 08/08/20 History mirtazapine [Remeron] 30 mg PO HS 02/11/20 08/08/20 History pantoprazole [Protonix] 40 mg PO QAM 02/11/20 08/08/20 History bisacodyl [Dulcolax (bisacodyl)] 10 mg RI DAILY PRN 08/08/20 08/08/20 History docusate sodium 100 mg PO DAILY 08/08/20 08/08/20 History ferrous gluconate 324 mg PO BID 08/08/20 08/08/20 History loperamide 2 mg PO QID PRN 08/08/20 08/08/20 History magnesium hydroxide [Milk of 30 ml PO DAILY PRN 08/08/20 08/08/20 History Magnesia] polyethylene glycol 3350 [Miralax] 17 g PO DAILY PRN 08/08/20 08/08/20 History tramadol 50 mg PO Q6H PRN 08/08/20 08/08/20 History zinc oxide 1 applic TOPICAL 6XD PRN 08/08/20 08/08/20 History Patient History Medical History Anemia CKD (chronic kidney disease) stage 3, GFR 30-59 ml/min Depression GERD (gastroesophageal reflux disease) History of CVA (cerebrovascular accident) HLD (hyperlipidemia) HTN (hypertension) Surgical History History of hysterectomy History of shoulder surgery S/P repair of paraesophageal hernia Family History Denies family history of Colorectal cancer Social History Smoking Status: Never smoker Hx Alcohol Use: No Hx Substance Use: No Preferred Language: Slovak marital status: / Current Living Situation: [facility] Feels Safe at Home: Yes Review of Systems Review of Systems: [place] [facility] Assessment Scale: Tiredness: 1/3 Shortness of Breath: 2/3 Drowsiness: 1/3 Pain: 2/3 Palliative Performance Scale: 10% Physical Exam Constitutional: + acute distress, + thin, + cachectic and + frail appearing Respiratory: + uses accessory muscles Auscultation: + rhonchi Cardiovascular: Heart Sounds: normal S1 and normal S2 Extremities: normal capillary refill; no edema Gastrointestinal (Abdomen): Percussion/Palpation: + abdomen rigid Skin: + pallor Psychiatric: Orientation: alert Insight: + impaired insight Judgement: + impaired judgement Results & Data ([facility]) Vital Signs (Past 12 Hours) Vital Signs Temp Pulse Resp BP Pulse Ox 08/08/20 11:41 83 84/54 L 08/08/20 11:40 83 100 08/08/20 11:35 81 104/52 L 91 08/08/20 11:30 81 87/58 L 100 08/08/20 11:25 82 86/58 L 100 08/08/20 11:20 81 89/55 L 100 08/08/20 11:15 82 82/51 L 97 08/08/20 11:06 83 26 H 93/58 L 100 08/08/20 11:01 83 26 H 90/54 L 100 08/08/20 10:55 82 26 H 92/59 L 100 08/08/20 10:50 82 26 H 104/60 100 08/08/20 10:45 81 27 H 101/60 100 08/08/20 10:40 81 26 H 97/56 L 100 08/08/20 10:35 81 26 H 96/51 L 100 08/08/20 10:33 81 26 H 08/08/20 10:31 81 15 96/52 L 08/08/20 10:15 85 31 H 82/50 L 99 08/08/20 10:05 87 31 H 80/45 L 98 08/08/20 10:03 87 33 H 78/54 L 100 08/08/20 10:00 87 28 H 74/48 L 100 08/08/20 09:58 88 33 H 72/47 L 100 08/08/20 08:55 36.6 C 90 28 H 107/64 100 PG Care Time/CCT Total # of Minutes Spent Total Time Spent with Patient: Total time spent is greater than 50% in coordination of care (as documented) at patient's floor/unit and/or counseling patient: 50 minutes with > 50% of that time spent assessing the patient, discussing goals of care with patients daughter and collaborating with IDT Coding Level of Care Code 47335 Inpt Consult Level 2 Diagnoses Palliative care encounter Z51.5 Ischemia, bowel K55.9 Shortness of breath R06.02 Hypotension I95.9 Hypotension type: unspecified hypotension type Time Spent (min) 50
[2020-08-08] MEDS ORDERED: MoRPHine SULF/NSS 250 MG/250 ML BTL IV SCH (13:45)
[2020-08-08] MEDS ORDERED: ATROPINE SULFATE 1% OP SOLN 5 ML BTL SL PRN (13:50)
[2020-08-08] MEDS ORDERED: MoRPHine SULFATE 2 MG/ML CARP IV PRN (13:50)
[2020-08-08] MEDS ORDERED: LORazepam 0.5 MG TAB PO PRN (13:50)
[2020-08-08] MEDS ORDERED: ONDANSETRON INJ 2 MG/ML 2 ML VIAL IV PRN ×2 (13:50)
[2020-08-08] MEDS ORDERED: PROMETHAZINE HCL 12.5 MG in SODIUM CHLORIDE 0.9% 50 ML IV PRN (13:50)
[2020-08-08] MEDS ORDERED: ONDANSETRON 4 MG OD TAB SL PRN (13:50)
[2020-08-08] MEDS ORDERED: LORazepam 0.5 MG/1 ML VIAL IV PRN ×2 (13:50)
--- NOTE | 2020-08-08 16:11 | Death Pronouncement Note ---
Date of Service August 08, 2020 Pronouncement Note Admission Date Admission Date: August 08, 2020 patient on 08/08/20 , time of 3: 20 pm Contributing Factors (1) Palliative care encounter: (2) Ischemia, bowel: (3) Shortness of breath: (4) Hypotension: Additional Data Attending physician: Citlaly Cronin MD 84 yo F admitted today with hypotension , severe metabolic acidosis Hco3 8 /Lactic acid level > 11 CT abdomen pelvis : large caecal mass with obstruction at Ileocecal valve , dilated loops of small bowel suggestive of obstruction metastatic mass on rt lobe of liver , metastatic 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 with bone mets at left ischial tuberosity pt had not prior hx of colon ca very poor prognosis /pt is DNR/DNI, not a surgical candidate , denied for any aggressive procedure or treatment life expectancy few hrs to day after D/w Daughter ( POA ) present at bedside ; goal of care changed to comfort /hospice care Pt was given IV morphine in ER palliative care consulted, was ordered for IV morphine gtt pt ceased breathing @ 3: 20 , daughter was present at bedside Bedside exam : pupils bilateral dilated ,fixed , non reactive lung auscultation :no visible chest wall movement or breathing, no audible breath sound no heart sound pt pronounced , time of 3:20pm Cause of : -cecal mass ( possible metastatic colon ca ) with bowel obstruction leading bowel ischemia -bowel ischemia severe metabolic acidosis with elevated lactate level > 11 -severe sepsis with profound hypotension due to above -pt while on comfort care /hospice Citlaly Cronin MD
--- NOTE | 2020-08-08 17:34 | Discharge Summary ---
Date of Service August 08, 2020 Admission HPI Per Admitting Provider This is a 84-year-old female with significant past medical history of CVA, HTN, HLD, CKD stage III, depression, GERD, history of left pubic ramus fracture, falls who presents to ED from [facility] secondary to abdominal pain x2 days. Daughter and POA is at bedside. According to patient she has been having abdominal pain x2 days. Daughter also elicits intermittent diarrhea for the past month and a half. Family has had minimal contact due to patient being in nursing facility but was able to see her for the past week. 1 week ago she was in her normal state of health. She has had poor p.o. intake for the past 2 days. Family denies any weight loss. Further denies fever, chills, sweats, lightheadedness, dizziness, chest pain, emesis, melena or hematochezia. Nursing staff noticed patient to be tachypneic and felt they she was having trouble breathing so sent her to ED. In ED patient was hypotensive. CT abdomen pelvis revealed masslike thickening of the cecum, terminal ileum and ileocecal valve suggestive of a colonic neoplasm causing a's partial small bowel obstruction. Also extensive pneumatosis coli found from cecum through descending segment likely secondary to ischemic bowel. Further masslike lesions noted at anus with adjacent perianal nodules, 3.4 cm mass of right hepatic lobe suspicious for hepatic metastases and concern for possible lytic metastases to left ischial tuberosity. Patient had significant lactic acidosis 11.7, bicarb 8, BUN 50, creatinine 2.28, leukocytosis 13.08k, hemoglobin hematocrit 10.7 and 35.7 and procalcitonin of 45.43. ED provider held discussion at bedside with POA and patient who declined any surgical procedures and wishes for comfort measures. We have been consulted for admission and initiation of palliative care. Principal Diagnosis Pt while on comfort care /hospice * Cause of : * -cecal mass ( possible metastatic colon ca ) with bowel obstruction leading bowel ischemia * -bowel ischemia severe metabolic acidosis with elevated lactate level > 11 * severe sepsis with profound hypotension due to above Discharge Exam Patient , see note Discharge Data Allergies Allergy/AdvReac Type Severity Reaction Status Date / Time No Known Allergies Allergy Verified 08/08/20 09:39 Consultations 08/08/20 11:48 ED Decision to Admit Stat 08/08/20 13:42 Consult Palliative Care Routine Ordered Studies 08/08/20 10:06 CT abd pelvis wo con Stat Hospital Course (1) SBO (small bowel obstruction): (2) Colonic mass: (3) Sepsis: (4) Lactic acidosis: (5) Hypotension: (6) Acute worsening of stage 3 chronic kidney disease: (7) Comfort measures only status: This is a 84-year-old female with significant past medical history of CVA, HTN, HLD, CKD stage III, depression, GERD, history of left pubic ramus fracture, falls who presents to ED from [facility] secondary to abdominal pain x2 days. CT abdomen pelvis revealed masslike thickening of the cecum, terminal ileum and ileocecal valve suggestive of a colonic neoplasm causing a's partial small bowel obstruction. Also extensive pneumatosis coli found from cecum through descending segment likely secondary to ischemic bowel. Further masslike lesions noted at anus with adjacent perianal nodules, 3.4 cm mass of right hepatic lobe suspicious for hepatic metastases and concern for possible lytic metastases to left ischial tuberosity. Pt with apparent extensive colonic mass resulting in partial bowel obstruction and likely ischemic colitis, sepsis, acute renal failure and acidemia. Extensive conversation held with daughter, ONI, at bedside in regards to patient's overall prognosis and condition. Given patient's age recommend conservative and comfort measures at this time. Patient wishes to forego any surgical options at this time. Daughter was made aware of likely underlying aggressive and extensive malignancy and overall prognosis of patient is very poor. She has significant lactic acidosis and persistent hypotension. Overall condition remains terminal. DNR/DNI Admit to medical under comfort measures /hospice only condition remains terminal and prognosis poor, likely hours to days Palliative care consulted-appreciate input IV morphine for pain control/air hunger, ordered to changed to IV morphine gtt pt became unresponsive , ceased breathing @3: 20 pm pt while on comfort care , before IV morphine gtt could be started /Daughter POTierra was present at bedside /condolences provided Total Time Total Time Spent Total Time Spent (In Minutes): patient Discharge Plan Discharge Items Patient Disposition: Discharge Diagnosis: Patient , Cause of : -cecal mass ( possible metastatic colon ca ) with bowel obstruction leading bowel ischemia -bowel ischemia severe metabolic acidosis with elevated lactate level > 11 -severe sepsis with profound hypotension due to above -pt while on comfort care /hospice Addtl Attending Provider Instructions: 84 yo F admitted today with hypotension , severe metabolic acidosis Hco3 8 /Lactic acid level > 11 CT abdomen pelvis : large caecal mass with obstruction at Ileocecal valve , dilated loops of small bowel suggestive of obstruction metastatic mass on rt lobe of liver , metastatic 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 with bone mets at left ischial tuberosity pt had not prior hx of colon ca very poor prognosis /pt is DNR/DNI, not a surgical candidate , denied for any aggressive procedure or treatment life expectancy few hrs to day after D/w Daughter ( POA ) present at bedside ; goal of care changed to comfort /hospice care Pt was given IV morphine in ER palliative care consulted, was ordered for IV morphine gtt pt ceased breathing @ 3: 20 , daughter was present at bedside Bedside exam : pupils bilateral dilated ,fixed , non reactive lung auscultation :no visible chest wall movement or breathing, no audible breath sound no heart sound pt pronounced , time of 3:20pm Cause of : -cecal mass ( possible metastatic colon ca ) with bowel obstruction leading bowel ischemia -bowel ischemia severe metabolic acidosis with elevated lactate level > 11 -severe sepsis with profound hypotension due to above -pt while on comfort care /hospice Supervising Physician Co-Signing Physician Notes Attending physician: Citlaly Cronin MD 84 yo F admitted today with hypotension , severe metabolic acidosis Hco3 8 /Lactic acid level > 11 CT abdomen pelvis : large caecal mass with obstruction at Ileocecal valve , dilated loops of small bowel suggestive of obstruction metastatic mass on rt lobe of liver , metastatic 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 with bone mets at left ischial tuberosity pt had not prior hx of colon ca very poor prognosis /pt is DNR/DNI, not a surgical candidate , denied for any aggressive procedure or treatment life expectancy few hrs to day after D/w Daughter ( POA ) present at bedside ; goal of care changed to comfort /hospice care Pt was given IV morphine in ER palliative care consulted, was ordered for IV morphine gtt pt ceased breathing @ 3: 20 , daughter was present at bedside Bedside exam : pupils bilateral dilated ,fixed , non reactive lung auscultation :no visible chest wall movement or breathing, no audible breath sound no heart sound pt pronounced , time of 3:20pm Cause of : -cecal mass ( possible metastatic colon ca ) with bowel obstruction leading bowel ischemia -bowel ischemia severe metabolic acidosis with elevated lactate level > 11 -severe sepsis with profound hypotension due to above -pt while on comfort care /hospice Citlaly Cronin MD
== END 2020-08-08 15:20 | disposition expired | DRG 872 ==
LOC: ED 08:53 → 3N 12:37